=== PATIENT | female | born 1955 | race Caucasian/White ===

== ENCOUNTER → 2018-03-14 | Outpatient (CLI) | payer BC, OTHER | LOC: GMAJ 17:40 | PROVIDERS: ATTEND Family Medicine | DX: M15.0 Primary generalized (osteo)arthritis (principal) ==

== ENCOUNTER 2020-04-10 05:34 | Day surgery (SDC) | payer OTHER ==
[2020-04-10] MEDS ORDERED: LACTATED RINGERS 1,000 ML ONE (06:52)
[2020-04-10] MEDS ORDERED: LIDOCAINE 1% 10 ML VIAL INJ ONE (07:00)
[2020-04-10] MEDS ORDERED: PROPOFOL 200 MG/20 ML VIAL IV ONE (07:00)
--- NOTE | 2020-04-10 10:52 | OP ---
DATE OF PROCEDURE: 04/10/20 PREOPERATIVE DIAGNOSIS: 1. Screening colonoscopy. POSTOPERATIVE DIAGNOSIS: 1. Colon polyps, two small polyps in the cecum. PROCEDURE: 1. Colonoscopy. SURGEON: Chris Gaona MD COMPLICATIONS: None. SPECIMENS: Polyps. PLAN: Discharge. INDICATION: This is a 65-year-old woman here for screening colonoscopy. PROCEDURE: General anesthesia was induced in the lateral position. Digital rectal exam was normal. No significant hemorrhoids. The colonoscope was inserted and passed with minimal difficulty to the cecum as identified by the ileocecal valve. The appendiceal orifice was not definitely identified although the entire cecum was examined well. One polyp was right in the cecum. It was less than 2 mm. It was excised. There was an additional polyp right on a fold near the ileocecal valve which was removed as well. Upon complete withdrawal, adequate prep and good examination, no other polyps were seen and no mucosal abnormalities were identified. The anorectal area appeared normal. Again, small internal hemorrhoids, but no thrombosis. The patient tolerated the procedure and was taken to Recovery to be discharged. #[id number] cc: Chris Kang MD [facility]
[2020-04-10 11:12] VITALS: BP 147/47; TEMP 97.7; O2SAT 96
== END 2020-04-10 11:05 | disposition home or self-care (01) ==
LOC: AMB 05:34
PROVIDERS: ATTEND Surgery
DX: Z12.11 Encounter for screening for malignant neoplasm of colon (principal); D12.0 Benign neoplasm of cecum; I10 Essential (primary) hypertension; Z79.899 Other long term (current) drug therapy
CPT/HCPCS: 00812; 45380; J3490; J7120